=== PATIENT | male | born 1970 | race Caucasian/White ===

== ENCOUNTER 2016-06-18 21:26 | Emergency (ER) | payer OTHER ==
[~2016-06-18] VITALS: Ht 182.9 cm; Wt 82.0 kg
[~2016-06-18 21:26] MED LIST: ATOM40 PO
[2016-06-18 21:35] VITALS: BP 112/58; PULSE 73; RESP 16; O2SAT 98
[2016-06-18 21:37] VITALS: BP 112/58; PULSE 76; RESP 14; O2SAT 98
[2016-06-18] MEDS ORDERED: SODIUM CHLOR 0.9% 1000 ML INJ 1,000 ML IV SCH (21:40)
[2016-06-18] MEDS ORDERED: SODIUM CHLORIDE 0.9% FLUSH 5 ML FLUSH IVF PRN (21:45)
[2016-06-18] MEDS ORDERED: ONDANSETRON HCL 4 MG/2 ML VIAL IVP ONE (21:45)
--- NOTE | 2016-06-18 22:13 | RADRPT ---
EXAM DATE/TIME: 06/18/2016 21:51 [facility] COMPARISON: No previous studies available for comparison. INDICATIONS : Trauma; fall. ETOH. RADIATION DOSE: 34.00 CTDIvol (mGy) MEDICAL HISTORY : Non-responsive. SURGICAL HISTORY : Non-responsive. ENCOUNTER: Initial ACUITY: 1 day PAIN SCALE: Non-responsive LOCATION: cranial TECHNIQUE: Multiple contiguous axial images were obtained of the head. Using automated exposure control and adj ustment of the mA and/or kV according to patient size, radiation dose was kept as low as reasonably a chievable to obtain optimal diagnostic quality images. FINDINGS: CEREBRUM: The ventricles are normal for age. No evidence of midline shift, mass lesion, hemorrhage or acute in farction. No extra-axial fluid collections are seen. POSTERIOR FOSSA: The cerebellum and brainstem are intact. The 4th ventricle is midline. The cerebellopontine angle i s unremarkable. EXTRACRANIAL: The visualized portion of the orbits is intact. SKULL: The calvaria is intact. No evidence of skull fracture. CONCLUSION: 1. No acute intracranial abnormalities. Case Michelle MD on June 18, 2016 at 22:10 Board Certified Radiologist. This report was verified electronically.
--- NOTE | 2016-06-18 22:34 | RADRPT ---
EXAM DATE/TIME: 06/18/2016 21:51 [facility] COMPARISON: No previous studies available for comparison. INDICATIONS : Trauma; fall. ETOH. RADIATION DOSE: 17.38 CTDIvol (mGy) MEDICAL HISTORY : Non-responsive. SURGICAL HISTORY : Non-responsive. ENCOUNTER: Initial ACUITY: 1 day PAIN SCALE: Non-responsive LOCATION: neck TECHNIQUE: Volumetric scanning of the cervical spine was performed. Multiplanar reconstructions in the sagittal, coronal and oblique axial planes were performed. Using automated exposure control and adjustment o f the mA and/or kV according to patient size, radiation dose was kept as low as reasonably achievable to obtain optimal diagnostic quality images. FINDINGS: VERTEBRAE: Normal vertebral body height. ALIGNMENT: No evidence of subluxation. C2-C3: The bony spinal canal is normal in size. No evidence of disc bulge or herniation. The neural forami na are bilaterally patent. C3-C4: The bony spinal canal is normal in size. No evidence of disc bulge or herniation. The neural forami na are bilaterally patent. C4-C5: The bony spinal canal is normal in size. No evidence of disc bulge or herniation. The neural forami na are bilaterally patent. C5-C6: The bony spinal canal is normal in size. No evidence of disc bulge or herniation. The neural forami na are bilaterally patent. C6-C7: The bony spinal canal is normal in size. No evidence of disc bulge or herniation. The neural forami na are bilaterally patent. C7-T1: The bony spinal canal is normal in size. No evidence of disc bulge or herniation. The neural forami na are bilaterally patent. CONCLUSION: Normal examination for a patient of this age. Case Michelle MD on June 18, 2016 at 22:29 Board Certified Radiologist. This report was verified electronically.
--- NOTE | 2016-06-18 23:04 | PD ---
HPI Chief Complaint: Altered Mental Status Time Seen by Provider: 21:40 Travel History International Travel<30 days: No Contact w/Intl Traveler<30days: [place] Traveled to: [place] Traveled to known affect area: No History of Present Illness HPI Patient is a 46-year-old male who presents to emergency room by medics after he was found outside on the ground unresponsive. As per EMS, patient had 4 cans of alcohol around him, patient was found on the ground with vomit surrounding him. Patient unable to provide history of present illness at this time. PFSH Past Medical History Asthma: No Anxiety: Yes Depression: Yes Cancer: No Cardiovascular Problems: No High Cholesterol: No Chemotherapy: No Chest Pain: No Congestive Heart Failure: No COPD: No Diminished Hearing: No Gastrointestinal Disorders: Yes GERD: Yes Genitourinary: No Hiatal Hernia: No Hypertension: Yes Implanted Vascular Access Dvce: No Neurologic: No Psychiatric: Yes Respiratory: No Immunizations Current: No Radiation Therapy: No Sleep Apnea: No Ulcer: No Past Surgical History Joint Replacement: No Other Surgery: No Social History Alcohol Use: Yes (OCC/ETOH ABUSE ) Tobacco Use: Yes Substance Use: No (DENIES ) Allergies-Medications (Allergen,Severity, Reaction): Coded Allergies: Bactrim (Verified Allergy, Mild, Rash, 04/26/16) Vancomycin (Verified Allergy, Mild, Rash, 04/26/16) red man *MDRO Multi-Drug Resistant Organism (Verified Adverse Reaction, Unknown, 04/26/16) MRSA leg 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 Reported Meds & Prescriptions Reported Meds & Active Scripts Active Reported Strattera (Atomoxetine HCl) 40 Mg Cap 40 Mg PO DAILY Review of Systems ROS Limitations: Intoxication, Altered Mental Status Except as stated in HPI: all other systems reviewed are Neg Physical Exam Exam Limitations: Intoxication, Altered Mental Status, Poor Historian Narrative GENERAL: No acute distress SKIN: Warm and dry. HEAD: Atraumatic. Normocephalic. EYES: Pupils equal and round. No scleral icterus. No injection or drainage. ENT: No nasal bleeding or discharge. Mucous membranes pink and moist. NECK: Trachea midline. No JVD. CARDIOVASCULAR: Regular rate and rhythm. No murmur appreciated. RESPIRATORY: No accessory muscle use. Clear to auscultation. Breath sounds equal bilaterally. GASTROINTESTINAL: Abdomen soft, non-tender, nondistended. Hepatic and splenic margins not palpable. MUSCULOSKELETAL: No obvious deformities. No clubbing. No cyanosis. No edema. NEUROLOGICAL: Patient is awake to painful stimuli Data Data Last Documented VS Vital Signs Date Time Temp Pulse Resp B/P Pulse Ox O2 Delivery O2 Flow Rate FiO2 06/18/16 21:37 76 14 112/58 98 Room Air Orders Complete Blood Count With Diff (06/18/16 21:40) Comprehensive Metabolic Panel (06/18/16 21:40) Urinalysis - C+S If Indicated (06/18/16 21:40) Drug Screen, Random Urine (06/18/16 21:40) Oximetry (06/18/16 21:40) Iv Access Insert/Monitor (06/18/16 21:40) Ecg Monitoring (06/18/16 21:40) Alcohol (Ethanol) (06/18/16 21:40) Salicylates (Aspirin) (06/18/16 21:40) Tylenol (Acetaminophen) (06/18/16 21:40) Psych Screen (06/18/16 21:40) Ct Brain W/O Iv Contrast(Rout) (06/18/16 21:40) Ct Cerv Spine W/O Contrast (06/18/16 21:40) Electrocardiogram (06/18/16 21:40) Ondansetron Inj (Zofran Inj) (06/18/16 21:45) Sodium Chlor 0.9% 1000 Ml Inj (Ns 1000 M (06/18/16 21:40) Sodium Chloride 0.9% Flush (Ns Flush) (06/18/16 21:45) Chest, Single Ap (06/18/16 23:03) Cath For Specimen (06/18/16 23:03) Sodium Chlor 0.9% 1000 Ml Inj (Ns 1000 M (06/18/16 23:15) Labs Laboratory Tests Test 06/18/16 23:12 White Blood Count 8.5 TH/MM3 Red Blood Count 4.56 MIL/MM3 Hemoglobin 14.2 GM/DL Hematocrit 41.0 % Mean Corpuscular Volume 89.9 FL Mean Corpuscular Hemoglobin 31.1 PG Mean Corpuscular Hemoglobin 34.6 % Concent Red Cell Distribution Width 13.1 % Platelet Count 322 TH/MM3 Mean Platelet Volume 6.9 FL Neutrophils (%) (Auto) 64.3 % Lymphocytes (%) (Auto) 21.9 % Monocytes (%) (Auto) 7.8 % Eosinophils (%) (Auto) 5.4 % Basophils (%) (Auto) 0.6 % Neutrophils # (Auto) 5.5 TH/MM3 Lymphocytes # (Auto) 1.9 TH/MM3 Monocytes # (Auto) 0.7 TH/MM3 Eosinophils # (Auto) 0.5 TH/MM3 Basophils # (Auto) 0.1 TH/MM3 CBC Comment DIFF FINAL Differential Comment Urine Opiates Screen NEG Urine Barbiturates Screen NEG Urine Amphetamines Screen NEG Urine Benzodiazepines Screen NEG Urine Cocaine Screen NEG Urine Cannabinoids Screen NEG Urine Color LIGHT-YELLOW Urine Turbidity CLEAR Urine pH 5.5 Urine Specific [place] 1.005 Urine Protein NEG mg/dL Urine Glucose (UA) NEG mg/dL Urine Ketones NEG mg/dL Urine Occult Blood NEG Urine Nitrite NEG Urine Bilirubin NEG Urine Urobilinogen LESS THAN 2.0 MG/DL Urine Leukocyte Esterase TRACE Urine RBC LESS THAN 1 /hpf Urine WBC 2 /hpf Urine Mucus FEW /lpf Microscopic Urinalysis Comment CULT NOT INDICATED Sodium Level 144 MEQ/L Potassium Level 3.8 MEQ/L Chloride Level 108 MEQ/L Carbon Dioxide Level 25.9 MEQ/L Anion Gap 10 MEQ/L Blood Urea Nitrogen 11 MG/DL Creatinine 0.78 MG/DL Estimat Glomerular Filtration 108 ML/MIN Rate Random Glucose 101 MG/DL Calcium Level 8.2 MG/DL Total Bilirubin 0.2 MG/DL Aspartate Amino Transf 16 U/L (AST/SGOT) Alanine Aminotransferase 24 U/L (ALT/SGPT) Alkaline Phosphatase 97 U/L Total Protein 6.9 GM/DL Albumin 3.5 GM/DL Salicylates Level 2.1 MG/DL Acetaminophen Level LESS THAN 2.0 MCG/ML Ethyl Alcohol Level 238 MG/DL MDM Medical Decision Making Medical Screen Exam Complete: Yes Emergency Medical Condition: Yes Interpretation(s) EKG NSR at 88bpm, qt/qtc: 372/418, no acute st or t wave changes Vital Signs Date Time Temp Pulse Resp B/P Pulse Ox O2 Delivery O2 Flow Rate FiO2 06/18/16 21:37 76 14 112/58 98 Room Air 06/18/16 21:35 73 16 112/58 98 Differential Diagnosis Intracranial hemorrhage, c-spine fracture, drug overdose, alcohol intoxication Narrative Course 46-year-old male who presents to emergency room intoxicated, found on floor by EMS. Patient currently intoxicated, cannot provide history of present illness. IV placed, labs as well as tox screen ordered for patient. Patient was found on the ground, CT of the head and neck ordered as well as x- ray chest. Plan to give IV fluids and monitor patient. Yesy Esparza DO Jun 18, 2016 23:04
[2016-06-18] MEDS ORDERED: SODIUM CHLOR 0.9% 1000 ML INJ 1,000 ML IV ONE (23:15)
[2016-06-18 23:31] LABS: AUTOMATED NEUTROPHIL # 5.5 TH/MM3 (1.8-7.7); BASOPHIL # 0.1 TH/MM3 (0-0.2); BASOPHIL % 0.6 % (0.0-2.0); EOSINOPHIL # 0.5 TH/MM3 (0-0.4); EOSINOPHIL % 5.4 % (0.0-4.0); HEMO FLAGS DIFF FINAL; LYMPH % 21.9 % (9.0-44.0); LYMPHOCYTE # 1.9 TH/MM3 (1.0-4.8); MEAN CELL VOLUME 89.9 FL (80.0-100.0); MEAN CORPUSCULAR HEMOGLOBIN 31.1 PG (27.0-34.0); MEAN CORPUSCULAR HGB CONC 34.6 % (32.0-36.0); MONO % 7.8 % (0.0-8.0); NEUT % 64.3 % (16.0-70.0); PLATELET COUNT 322 TH/MM3 (150-450); RED BLOOD COUNT 4.56 MIL/MM3 (4.50-5.90); RED CELL DISTRIBUTION WIDTH 13.1 % (11.6-17.2); WHITE BLOOD COUNT 8.5 TH/MM3 (4.0-11.0)
[2016-06-18 23:50] LABS: ALT (GPT) 24 U/L (12-78); AMPHETAMINE, URINE NEG (NEG); ANION GAP 10 MEQ/L (5-15); AST (GOT) 16 U/L (15-37); BARBITURATES, URINE NEG (NEG); BICARBONATE 25.9 MEQ/L (21.0-32.0); BLOOD UREA NITROGEN 11 MG/DL (7-18); CHLORIDE 108 MEQ/L (98-107); COCAINE, URINE NEG (NEG); GLOMERULAR FILTRATION RATE 108 ML/MIN (>89); POTASSIUM 3.8 MEQ/L (3.5-5.1); SODIUM (NA) 144 MEQ/L (136-145)
[2016-06-18 23:52] LABS: ACETAMINOPHEN LESS THAN 2.0 MCG/ML (10.0-30.0); ALKALINE PHOSPHATASE 97 U/L (45-117); TOTAL BILIRUBIN ADULT 0.2 MG/DL (0.2-1.0)
--- NOTE | 2016-06-18 23:56 | RADRPT ---
EXAM DATE/TIME: 06/18/2016 23:16 [facility] COMPARISON: CHEST SINGLE AP, February 21, 2016, 0:47. INDICATIONS : Pt found unresponsive on sidewalk tonight in vomit. MEDICAL HISTORY : unobtainable-non responsive SURGICAL HISTORY : unobtainable-non responsive ENCOUNTER: Initial ACUITY: 1 day PAIN SCORE: Non-responsive. LOCATION: Bilateral chest FINDINGS: The patient is rotated towards the left. The lungs are symmetrically aerated. No focal infiltrate s een. Both hemidiaphragms are well delineated. No evidence of pneumothorax. CONCLUSION: No infiltrates seen. The Ramón Proctor MD on June 18, 2016 at 23:54 Board Certified Radiologist. This report was verified electronically.
[2016-06-19 00:15] LABS: BLOOD, URINE NEG (NEG); COMMENT (UR) CULT NOT INDICATED; CULTURE IF INDICATED CULT NOT INDICATED; GLUCOSE,URINE NEG (NEG); KETONE, URINE NEG (NEG); MUCUS URINE FEW /lpf (OCC); NITRITE,URINE NEG (NEG); PH, URINE 5.5 (5.0-8.5); URINE COLOR LIGHT-YELLOW (YELLW/STRAW)
[2016-06-19 07:45] VITALS: BP 138/79; PULSE 72; RESP 18; O2SAT 98
--- NOTE | 2016-06-19 14:42 | EKG ---
Date Performed: 06/18/2016 Time Performed: 23:06:50 PTAGE: 46 years EKG: Sinus rhythm PREVIOUS TRACING : 02/21/2016 00.38 Compared to the previous tracing, rate has increased DOCTOR: Rajesh Guadalupe Interpretating Date/Time 06/19/2016 14:41:55
== END 2016-06-19 08:36 | disposition home or self-care (01) ==
LOC: NEPE 21:26
DX: F10.129 Alcohol abuse with intoxication, unspecified (principal); F41.8 Other specified anxiety disorders; I10 Essential (primary) hypertension; Z72.0 Tobacco use
CPT/HCPCS: 70450; 71010; 72125; 80053; 80307; 80329; 81001; 85025; 93005; 96361; 96374; 99285; J2405; J7030; P9612; 80320; G0480

== ENCOUNTER 2016-10-15 01:42 | Emergency (ER) | payer OTHER ==
[~2016-10-15] VITALS: Ht 182.9 cm; Wt 82.0 kg
[2016-10-15 01:46] VITALS: BP 160/93; PULSE 98; RESP 14; TEMP 98.8; O2SAT 98
[2016-10-15] MEDS ORDERED: MUPI2%T TOPICAL (05:08)
[2016-10-15] MEDS ORDERED: CLIN1CAP5 PO (05:08)
--- NOTE | 2016-10-15 05:12 | PD ---
HPI Chief Complaint: Skin Problem Time Seen by Provider: 05:06 Travel History International Travel<30 days: No Contact w/Intl Traveler<30days: No Traveled to known affect area: No History of Present Illness HPI 46 year-old male presents to the emergency department for complaint of multiple spider bites over his bilateral upper extremities and buttock bilaterally. No fever no chills no nausea no vomiting. Patient denies chronic medical conditions denies hypertension dyslipidemia diabetes asthma peptic ulcer disease. Patient states he has been treated for MRSA infection in the past. Patient rates discomfort as minor at this time. Patient does not know his tetanus status. PFSH Past Medical History Narrative Medical Anxiety depression, MRSA abscess, hypertension; alcohol use, tobacco use; nursing notes reviewed Asthma: No Anxiety: Yes Depression: Yes Cancer: No Cardiovascular Problems: No High Cholesterol: No Chemotherapy: No Chest Pain: No Congestive Heart Failure: No COPD: No Diminished Hearing: No Gastrointestinal Disorders: Yes GERD: Yes Genitourinary: No Hiatal Hernia: No Hypertension: Yes Implanted Vascular Access Dvce: No Neurologic: No Psychiatric: Yes Respiratory: No Immunizations Current: No Radiation Therapy: No Sleep Apnea: No Ulcer: No Past Surgical History Joint Replacement: No Other Surgery: No Social History Alcohol Use: Yes ( of alcoholism and GERD) Tobacco Use: Yes Substance Use: No (DENIES ) Allergies-Medications (Allergen,Severity, Reaction): Coded Allergies: Bactrim (Verified Allergy, Mild, Rash, 04/26/16) Vancomycin (Verified Allergy, Mild, Rash, 04/26/16) red man *MDRO Multi-Drug Resistant Organism (Verified Adverse Reaction, Unknown, 04/26/16) MRSA leg 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 Reported Meds & Prescriptions Reported Meds & Active Scripts Active Keflex (Cephalexin) 500 Mg Cap 500 Mg PO Q6H 7 Days Bactroban Topical (Mupirocin) 2 % Cream 1 Applic TOPICAL TID Clindamycin (Clindamycin HCl) 150 Mg Cap 300 Mg PO Q6H 7 Days Review of Systems Except as stated in HPI: all other systems reviewed are Neg General / Constitutional: No: Fever, Chills HENT: No: Congestion Cardiovascular: No: Chest Pain or Discomfort Respiratory: No: Shortness of Breath Gastrointestinal: No: Nausea, Vomiting, Diarrhea, Abdominal Pain Genitourinary: No: Urgency, Dysuria Musculoskeletal: No: Myalgias, Arthralgias Skin: Positive Rash, No Itching, No Dryness, No Lumps, No Hives Neurologic: No: Weakness Psychiatric: No: Anxiety Endocrine: No: Heat Intolerance Hematologic/Lymphatic: No: Easy Bruising Physical Exam Narrative GENERAL: Well-developed well-nourished male in no acute distress no respiratory distress SKIN: Warm and dry. Multiple various staged vesicles pustules to the buttock cheeks bilaterally and right wrist as well as left forearm. No urticaria. No petechia or purpura. No induration no fluctuance. HEAD: Normocephalic. EYES: No scleral icterus. No injection or drainage. NECK: Supple, trachea midline. No JVD or lymphadenopathy. CARDIOVASCULAR: Regular rate and rhythm without murmurs, gallops, or rubs. RESPIRATORY: Breath sounds equal bilaterally. No accessory muscle use. GASTROINTESTINAL: Abdomen soft, non-tender, nondistended. MUSCULOSKELETAL: No cyanosis, or edema. BACK: Nontender without obvious deformity. No CVA tenderness. Data Data Last Documented VS Vital Signs Date Time Temp Pulse Resp B/P Pulse Ox O2 Delivery O2 Flow Rate FiO2 10/15/16 01:46 98.8 98 14 160/93 98 Room Air Orders Clindamycin Inj (Cleocin Inj) (10/15/16 05:15) Tetanus/Diphtheria Tox Adult (Tetanus/Di (10/15/16 05:15) Wound Culture And Gram Stain (10/15/16 05:04) MDM Medical Decision Making Medical Screen Exam Complete: Yes Emergency Medical Condition: Yes Medical Record Reviewed: Yes Differential Diagnosis Folliculitis, cellulitis, abscess, skin popping Narrative Course Patient with multiple areas of follicular inflammation with and without vesicles and pustules bilaterally; patient is afebrile. Patient was started on oral antibiotic. Patient encouraged to keep areas clean and dry and to wash with Dial or other antibacterial soap. Patient's tetanus status updated. Diagnosis Primary Impression: Folliculitis Referrals: [facility] call for appointment Primary Care Physician call for appointment Patient Instructions: General Instructions Additional Instructions: Complete course of antibiotic as prescribed Apply topical antibiotic as prescribed Keep one site clean and dry Take acetaminophen/Tylenol as needed for fever 100.4F or greater Take ibuprofen/Advil/Motrin every 6-8 hours as needed for fever 100.4F or greater or for pain associated with inflammation Return to the emergency department for any concerns or change in condition Med/Other Pt SpecificInfo: Prescription(s) given Scripts Cephalexin (Keflex)500 Mg Atm654 Mg PO Q6H 7 Days Ref 0 Prov:Jaylin Cabrera MD 10/15/16 Mupirocin Topical (Bactroban Topical)2 % Cream1 Applic TOPICAL TID #1 TUBE Ref 0 Prov:Jaylin Cabrera MD 10/15/16 Clindamycin 150 Mg Pym003 Mg PO Q6H 7 Days Ref 0 Prov:Jaylin Cabrera MD 10/15/16 Jaylin Cabrera MD October 15, 2016 05:12 Jaylin Cabrera MD October 15, 2016 05:12
[2016-10-15] MEDS ORDERED: CLINDAMYCIN INJ 600 MG in SODIUM CHLORIDE 0.9% INJ 100 ML IV ONE (05:15)
[2016-10-15] MEDS ORDERED: TETANUS/DIPHTHERIA TOXOID ADULT 0.5 ML VIAL IM ONE (05:15)
[2016-10-15] MEDS ORDERED: CEPH-460 PO (05:35)
== END 2016-10-15 13:31 | disposition home or self-care (01) ==
LOC: NEPC 01:42
DX: L73.9 Follicular disorder, unspecified (principal); B95.61 Methicillin susceptible Staphylococcus aureus infection as the cause of diseases classified elsewhere; B95.0 Streptococcus, group A, as the cause of diseases classified elsewhere; Z23 Encounter for immunization
CPT/HCPCS: 86403; 87070; 87186; 90471; 90714; 96374